=== PATIENT | male | born 2000 | race Caucasian/White ===

== ENCOUNTER 2022-10-19 18:11 | Emergency (ER) | payer OTHER, SELFPAY ==
[2022-10-19 18:19] VITALS: BP 134/81; PULSE 114; RESP 20; TEMP 36.9; O2SAT 96; BMI 34.2
--- NOTE | 2022-10-19 18:22 | DI.RAD.S_ITS ---
PROCEDURE: XR ANKLE LT MIN 3V INDICATIONS: injury TECHNIQUE: 3 views of the ankle were acquired. COMPARISON: [facility], CR, XR FOOT LT MIN 3V, 10/19/2022, 18:23. FINDINGS: Bones: Subtle linear calcification noted along the anterior and dorsal aspect of the talus. No significant soft tissue swelling. Ankle mortise is normally aligned. No suspicious bony lesions. Soft tissues: No tibiotalar joint effusion. Achilles tendon appears normal. Mild soft tissue swelling along the lateral ankle. IMPRESSION: Linear calcification along the dorsal aspect of the anterior talus may represent age indeterminate avulsive injury. No adjacent inflammation. Mild soft tissue swelling of the lateral ankle. Dictated by: Flex Ogden D.O. on 10/19/2022 at 17:50 Approved by: Flex Ogden D.O. on 10/19/2022 at 17:52
--- NOTE | 2022-10-19 18:23 | DI.RAD.S_ITS ---
PROCEDURE: XR FOOT LT MIN 3V INDICATIONS: injury TECHNIQUE: 3views of the foot were acquired. COMPARISON: None. FINDINGS: Bones: Linear calcification along the dorsal aspect of the anterior talus noted on the lateral view. No suspicious bony lesions. Soft tissues: No tibiotalar joint effusion. Achilles tendon appears normal. IMPRESSION: Linear calcification along the dorsal aspect of the anterior talus may represent age-indeterminate avulsive injury. No adjacent inflammation. Otherwise no a acute abnormality of the foot. Dictated by: Flex Ogden D.O. on 10/19/2022 at 17:53 Approved by: Flex Ogden D.O. on 10/19/2022 at 17:54
--- NOTE | 2022-10-19 18:23 | DI.RAD.S_ITS ---
PROCEDURE: XR FINGER RT MIN 2V INDICATIONS: injury TECHNIQUE: AP hand, 2 views of the small finger(s) acquired. COMPARISON: None. FINDINGS: Bones: No fractures or dislocations. No suspicious bony lesions. Soft tissues: No suspicious soft tissue calcifications. IMPRESSION: No evidence acute bony abnormality of the small finger of the right hand Dictated by: Beau Raymundo M.D. on 10/19/2022 at 19:19 Approved by: Beau Raymundo M.D. on 10/19/2022 at 19:20
--- NOTE | 2022-10-19 18:23 | ED.LOWEXIN ---
HPI - Extremity Injury (Lower) <Jessica Jalloh PA-C - Last Filed: 10/19/22 20:14> General Chief Complaint: Extremity Injury, Lower Stated Complaint: Left ankle inj, Right finger inj Time Seen by Provider: 10/19/22 18:22 Source: patient Mode of arrival: Ambulatory History of Present Illness HPI Narrative: This is a 21-year-old male who presents with concern for left ankle and foot pain as well as right pinky pain. 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 The palate was unstable and he broke through it with his right foot going all the way down to the ground below the street about 2 or 3 ft. In the process his left ankle rolled to the outside and ended up out to the side. He states that his right foot and leg have been fine but his left foot and ankle have been painful and swollen. He has been trying not to walk on it but he has walked on it some and has not been using crutches. They did ice it on and off and kept it elevated on the flight back. He states his right pinky got smashed some how in the incident. He has noticed that he has not been able to move it as much as usual with bending it, and it has been bruised and a little bit swollen. He endorses the foot pain as being sharp and worse when he moves his 2nd to 4th toes. It is located at the top of his foot near the ankle in the front and on the sides. He denies numbness or tingling of the affected extremity, also denies previous surgery or injury to this foot or ankle or pinky. He did not have any other injuries and denies other complaints or concerns. Related Data Home Medications Medication Instructions Recorded Confirmed No Known Home Medications 10/19/22 10/19/22 Allergies Allergy/AdvReac Type Severity Reaction Status Date / Time No Known Drug Allergies Allergy Verified 10/19/22 18:22 Review of Systems <Jessica Jalloh PA-C - Last Filed: 10/19/22 20:14> Review of Systems Narrative: See HPI Patient History <Jessica Jalloh PA-C - Last Filed: 10/19/22 20:14> Social History Smoking Status: Current every day smoker Smoking Status: Current every day smoker tobacco type: vaping alcohol intake frequency: holidays/special occasions only Substance Use Type: does not use Exam <Jessica Jalloh PA-C - Last Filed: 10/19/22 20:14> Narrative Exam Narrative: GENERAL: 21 year old patient appears stated age. Well-developed patient, in mild distress. HEAD: Atraumatic. Normocephalic. EYES: Pupils equal round and reactive. Extraocular motions intact. No scleral icterus. No injection or drainage. ENT: Nose without bleeding, purulent drainage. Airway patent. NECK: Trachea midline. CARDIOVASCULAR: Regular rate and rhythm without murmurs, gallops, or rubs. RESPIRATORY: Clear to auscultation. Breath sounds equal bilaterally. No wheezes, rales, or rhonchi. GASTROINTESTINAL: Abdomen soft, non-tender, nondistended. EXTREMITIES: The affected right pinky is moderately swollen with bruising purplish blue present near the base of the pinky and at the PIP. There is slight tenderness with the palpation of the PIP, patient has generally intact range of motion and strength but with slightly reduced flexion 2nd to pain and swelling. The affected left foot and ankle are positive for moderate generalized swelling about the ankle most prominent over the lateral aspect and anterior aspect. Patient is tender with palpation over the anterior ankle/proximal mid foot and medial and lateral foot just distal to the ankle, there is no medial malleolar tenderness or lateral malleolar tenderness. There is tenderness of the 3rd metatarsal. The 3rd and 4th toes have bruising present purplish blue at the base of the toes but intact range of motion. Capillary refill is less than 2 seconds, skin is pink warm dry. Patient has reduced range of motion at the ankle 2nd to pain and swelling. No edema or joint tenderness. BACK: Nontender without deformity or crepitance. No flank tenderness. NEURO: AOx3. SKIN: No rash or erythema of visible areas Initial Vital Signs Initial Vital Signs: Vital Signs Temperature 98.5 F 10/19/22 18:19 Pulse Rate 114 H 10/19/22 18:19 Respiratory Rate 20 10/19/22 18:19 Blood Pressure 134/81 10/19/22 18:19 Pulse Oximetry 96 10/19/22 18:19 Oxygen Delivery Method Room Air 04/08/23 18:19 <Cole Pettit DO - Last Filed: 10/19/22 20:46> Initial Vital Signs Initial Vital Signs: Vital Signs Temperature 98.5 F 10/19/22 18:19 Pulse Rate 114 H 10/19/22 18:19 Respiratory Rate 20 10/19/22 18:19 Blood Pressure 134/81 10/19/22 18:19 Pulse Oximetry 96 10/19/22 18:19 Oxygen Delivery Method Room Air 10/19/22 18:19 Course <Jessica Jalloh PA-C - Last Filed: 10/19/22 20:14> Course Course Narrative: did discuss XR findings with Attending Dr Pettit. Agrees w/plan for splint/non weight bearing, [place]. Imaging disc asked for from radiology. 1919 Orders Ordered: ED Orders 10/19/22 18:22 XR ankle LT min 3V Stat 10/19/22 18:23 XR finger RT min 2V Stat XR foot LT min 3V Stat Vital Signs Vital signs: Vital Signs - 8 hr 10/19/22 18:19 10/19/22 20:15 Temperature 98.5 F Pulse Rate 114 H 93 H Respiratory Rate 20 16 Blood Pressure 134/81 131/60 Pulse Oximetry 96 96 Oxygen Delivery Method Room Air Room Air <DO Donta Beck Last Filed: 10/19/22 20:46> Orders Ordered: ED Orders 10/19/22 18:22 XR ankle LT min 3V Stat 10/19/22 18:23 XR finger RT min 2V Stat XR foot LT min 3V Stat Vital Signs Vital signs: Vital Signs - 8 hr 10/19/22 18:19 10/19/22 20:15 Temperature 98.5 F Pulse Rate 114 H 93 H Respiratory Rate 20 16 Blood Pressure 134/81 131/60 Pulse Oximetry 96 96 Oxygen Delivery Method Room Air Room Air MDM - Extremity Injury (Lower) <Jessica Jalloh PA-C - Last Filed: 10/19/22 20:14> Differential Diagnosis Differential diagnosis: Likely ankle sprain and strain, ankle fracture (foot fracture) and other (foot sprain, finger sprain fracture) Imaging Data Extremity x-ray #1: My Impression: Agree with radiologist's interpretation Radiologist's Impression: [address] [address] XRay Report Signed Patient: Nick Arriaza MR#: [id number] : 2000 Acct:[id number] Age/Sex: 21 / M Date of Service: 10/19/22 Loc: ED Accession Number: [id number] ?? Procedure: XR ankle LT min 3V Ordering Provider: Jessica Jalloh P.A-C PROCEDURE:? XR ANKLE LT MIN 3V ? INDICATIONS:? injury ? TECHNIQUE:? 3 views of the ankle were acquired.? ? COMPARISON:? [facility], , XR FOOT LT MIN 3V, 10/19/2022, 18:23. ? FINDINGS:? ? Bones:? Subtle linear calcification noted along the anterior and dorsal aspect of the talus.? No significant soft tissue swelling.? Ankle mortise is normally aligned.? No suspicious bony lesions.? ? Soft tissues:? No tibiotalar joint effusion.? Achilles tendon appears normal.? Mild soft tissue swelling along the lateral ankle. ? ? IMPRESSION:? ? Linear calcification along the dorsal aspect of the anterior talus may represent age indeterminate avulsive injury.? No adjacent inflammation. ? Mild soft tissue swelling of the lateral ankle. ? Dictated by: Flex Ogden D.O. on 10/19/2022 at 17:50 ? ? Approved by: Flex Ogden D.O. on 10/19/2022 at 17:52?? Extremity x-ray #2: My Impression: Agree with radiologist's interpretation Radiologist's Impression: [facility] [address] [place] [id number] XRay Report Signed Patient: Nick Arriaza MR#: [id number] : 2000 Acct:[id number] Age/Sex: 21 / M Date of Service: 10/19/22 Loc: ED Accession Number: [id number] ?? Procedure: XR foot LT min 3V Ordering Provider: Jessica Jalloh P.A-C PROCEDURE:? XR FOOT LT MIN 3V ? INDICATIONS:? injury ? TECHNIQUE:? 3views of the foot were acquired.? ? COMPARISON:? None. ? FINDINGS:? ? Bones:? Linear calcification along the dorsal aspect of the anterior talus noted on the lateral view.? No suspicious bony lesions.? ? Soft tissues:? No tibiotalar joint effusion.? Achilles tendon appears normal.? ? ? IMPRESSION:? ? Linear calcification along the dorsal aspect of the anterior talus may represent age-indeterminate avulsive injury.? No adjacent inflammation.? Otherwise no a acute abnormality of the foot. ? ? Dictated by: Flex Ogden D.O. on 10/19/2022 at 17:53 ? ? Approved by: Flex Ogden D.O. on 10/19/2022 at 17:54?? Extremity x-ray #3: My Impression: Agree with radiologist interpretation Radiologist's Impression: [address] [address] XRay Report Signed Patient: Nick Arriaza MR#: [id number] : 2000 Acct:[id number] Age/Sex: 21 / M Date of Service: 10/19/22 Loc: ED Accession Number: [id number] ?? Procedure: XR finger RT min 2V Ordering Provider: Jessica Jalloh P.A-C PROCEDURE:? XR FINGER RT MIN 2V ? INDICATIONS:? injury ? TECHNIQUE:? AP hand, 2 views of the small finger(s) acquired.? ? COMPARISON:? None. ? FINDINGS:? ? Bones:? No fractures or dislocations.? No suspicious bony lesions.? ? Soft tissues:? No suspicious soft tissue calcifications.? ? IMPRESSION:? No evidence acute bony abnormality of the small finger of the right hand ? ? Dictated by: Beau Raymundo M.D. on 10/19/2022 at 19:19 ? ? Approved by: Beau Raymundo M.D. on 10/19/2022 at 19:20?? Treatment and disposition Shared decision making:: Shared decision-making was used in determining this patient's plan of care in the emergency department and plan for outpatient follow-up. 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 Also concern for right pinky pain and swelling. X-rays returned positive for age-indeterminate possible avulsion injury of the talus in the affected left foot. Exam is consistent with this injury and suspect that this is related to the injury the patient sustained 2 days ago. No prior injury or surgery to this foot or ankle. Patient is placed in an ortho-glass stirrup with posterior slab, provided with crutches, advised non-weightbearing, advised to [place], provided with copies of imaging on disc. Re-evaluated the patient after splinting with no change in neurovascular status. Advised regarding RICE. Return precautions provided, follow-up plan discussed, all questions answered. Discharge Plan Departure Patient Disposition: Home Clinical Impression: Avulsion fracture of talus, Ankle sprain and strain, Finger sprain Instructions: How to Take Care of Your Splint Activity Restrictions/Additional Instructions: Thank you for letting us be part of your care today in the emergency department. You sustained an injury a few days ago on deployment and we obtained x-rays today for further evaluation. It looks like your pinky is just a sprain/strain there is not evidence of fracture there but we did place this in a splint today. Your ankle definitely is sprained/strained but you also appear to have an avulsion fracture of the talus which is 1 of the bones in your foot that helps to support your weight. It is important that you do not walk or put weight on this injured foot until you have followed up with Orthopedics and made a plan with them. We have provided you with crutches today and placed do in a splint. This will need to stay dry in order to be effective. I recommend elevating her leg as much as possible, certainly no weight-bearing as discussed, and Tylenol and ibuprofen alternating for pain. We are provided you with paper copies and a disc of the imaging studies so that you can share these [place]. There is no evidence of an emergent or life threatening illness at this time, but follow up with your doctor in 1-2 days is recommended nonetheless to continue to rule out serious underlying causes of your symptoms. Please call the office for an appointment. Please return to the Emergency Department for any worsening or persistent symptoms. Please take medications as directed. Prescriptions: No Action No Known Home Medications Referrals: Provider,Reymundo WARE [Primary Care Provider] - Stand Alone Forms: Patient Portal/API <Cole Pettit DO - Last Filed: 10/19/22 20:46> Cosign ED Attending Cosignature Attestation: Dr Pettit Co-Sign Statement: I was available for consultation during this patient's emergency department visit. This chart is signed by myself for administrative purposes only. I did not have direct contact with this patient during this visit. They were seen independently by the APC.
[2022-10-19 20:15] VITALS: BP 131/60; PULSE 93; RESP 16; O2SAT 96
== END 2022-10-19 20:20 | disposition home or self-care (01) ==
PROVIDERS: Emergency Provider Student in an Organized Health Care Education/Training Program
DX: S92.152A Displaced avulsion fracture (chip fracture) of left talus, initial encounter for closed fracture (principal); S93.402A Sprain of unspecified ligament of left ankle, initial encounter; S96.912A Strain of unspecified muscle and tendon at ankle and foot level, left foot, initial encounter; S63.616A Unspecified sprain of right little finger, initial encounter; W18.30XA Fall on same level, unspecified, initial encounter
CPT/HCPCS: 29515; 73140; 73610; 73630; 99283

== ENCOUNTER 2022-11-29 11:15 | Emergency (ER) | payer OTHER, SELFPAY ==
[2022-11-29 11:43] VITALS: BP 135/96; PULSE 104; RESP 16; TEMP 38; O2SAT 97; BMI 33.5
[2022-11-29 11:52] VITALS: TEMP 38
[2022-11-29] MEDS: ACETAMINOPHEN 325 MG TABLET 975 MG PO (11:52)
[2022-11-29] MEDS: IBUPROFEN 400 MG TABLET 800 MG PO (11:52)
[2022-11-29 12:49] LABS: Adenovirus Not Detected (Not Detect); B. parapertussis Not Detected (Not Detecte); Bordetella pertussis Not Detected (Not Detecte); Chlamydophila pneumoniae Not Detected (Not Detect); Coronavirus 229E Not Detected (Not Detect); Coronavirus HKU1 Not Detected (Not Detect); Coronavirus NL 63 Not Detected (Not Detect); Coronavirus OC43 Not Detected (Not Detect); Human Metapneumovirus Not Detected (Not Detect); Human Rhinovirus/Enterovirus Not Detected (Not Detect); Influenza A Not Detected (Not Detect); Influenza B Not Detected (Not Detect); Mycoplasma pneumoniae Not Detected (Not Detect); Parainfluenza Virus 1 Not Detected (Not Detect); Parainfluenza Virus 2 Not Detected (Not Detect); Parainfluenza Virus 3 Not Detected (Not Detect); Parainfluenza Virus 4 Not Detected (Not Detect); Respiratory Syncytial Virus Not Detected (Not Detect); SARS- CoV-2 Not Detected (Not Detecte)
[2022-11-29 16:16] VITALS: BP 133/73; PULSE 73; O2SAT 97
[2022-11-29 16:28] LABS: Strep Grp A by PCR Rapid Negative (Negative)
--- NOTE | 2022-11-29 17:16 | ED_ITS ---
HPI - URI/Sore Throat <Jessica Jalloh PA-C - Last Filed: 11/29/22 17:25> General Chief Complaint: Upper Respiratory Symptoms Stated Complaint: T-2/fever/lumps om neck/D/drainage Time Seen by Provider: 11/29/22 11:24 History of Present Illness HPI Narrative: Is a 21-year-old male who presents with concerns for postnasal drips, sinus drainage, low-grade fevers, and swollen lymph nodes on the right side of his neck. Patient states symptoms have been present for about 3 days, he states that they have not been worsening but they are also not really improved. His fevers have been up to about 101 they are relieved with Tylenol and ibuprofen. He states they have been coming and going. He also endorses some congestion and postnasal drip with slight throat irritation. He stated that he had a couple episodes of loose stools yesterday but none today. Denies any chills, nausea, vomiting, abdominal pain or any other symptoms. He denies any other complaints or concerns. Related Data Home Medications Medication Instructions Recorded Confirmed No Known Home Medications 10/19/22 10/19/22 Allergies Allergy/AdvReac Type Severity Reaction Status Date / Time No Known Drug Allergies Allergy Verified 11/29/22 17:16 Review of Systems <Jessica Jalloh PA-C - Last Filed: 11/29/22 17:25> Review of Systems Narrative: See HPI Patient History <Jessica Jalloh PA-C - Last Filed: 11/29/22 17:25> Social History Smoking Status: Current every day smoker Smoking Status: Current every day smoker tobacco type: vaping alcohol intake frequency: holidays/special occasions only Substance Use Type: does not use Exam <Jessica Jalloh PA-C - Last Filed: 11/29/22 17:25> Narrative Exam Narrative: GENERAL: 21 year old patient appears stated age. Well-developed patient, in mild distress. HEAD: Atraumatic. Normocephalic. EYES: Pupils equal round and reactive. Extraocular motions intact. No scleral icterus. No injection or drainage. ENT: Nose without bleeding, purulent drainage. Throat with mild erythema, without tonsillar hypertrophy or exudate. Airway patent. NECK: Trachea midline. There is unilateral right-sided posterior cervical chain lymphadenopathy with multiple lymph nodes 2 cm, they are slightly tender, there is no erythema or fluctuance noted. Non tender CARDIOVASCULAR: Regular rate and rhythm without murmurs, gallops, or rubs. RESPIRATORY: Clear to auscultation. Breath sounds equal bilaterally. No wheezes, rales, or rhonchi. GASTROINTESTINAL: Abdomen soft, non-tender, nondistended. EXTREMITIES: No edema or joint tenderness. BACK: Nontender without deformity or crepitance. No flank tenderness. NEURO: AOx3. SKIN: No rash or erythema of visible areas Initial Vital Signs Initial Vital Signs: Vital Signs Temperature 100.4 F H 11/29/22 11:43 Pulse Rate 104 H 11/29/22 11:43 Respiratory Rate 16 11/29/22 11:43 Blood Pressure 135/96 H 11/29/22 11:43 Pulse Oximetry 97 11/29/22 11:43 Oxygen Delivery Method Room Air 11/29/22 11:43 <Brie Patterson DO - Last Filed: 11/29/22 19:26> Initial Vital Signs Initial Vital Signs: Vital Signs Temperature 100.4 F H 11/29/22 11:43 Pulse Rate 104 H 11/29/22 11:43 Respiratory Rate 16 11/29/22 11:43 Blood Pressure 135/96 H 11/29/22 11:43 Pulse Oximetry 97 11/29/22 11:43 Oxygen Delivery Method Room Air 11/29/22 11:43 Course <Jessica Jalloh PA-C - Last Filed: 11/29/22 17:25> Orders Ordered: ED Orders 11/29/22 11:48 Respiratory Panel (Film Array) Stat 11/29/22 16:04 Strep Grp A by PCR Rapid Stat Throat Culture Stat Discontinued Medications Acetaminophen (Acetaminophen 325 Mg Tablet) 975 mg PO NOW ONE Stop: 11/29/22 11:49 Last Admin: 11/29/22 11:52 Dose: 975 mg Documented By: EFREN Ibuprofen (Ibuprofen 400 Mg Tablet) 800 mg PO NOW ONE Stop: 11/29/22 11:49 Last Admin: 11/29/22 11:52 Dose: 800 mg Documented By: CTS Vital Signs Vital signs: Vital Signs - 8 hr 11/29/22 11:43 11/29/22 11:52 11/29/22 11:52 Temperature 100.4 F H 100.4 F H 100.4 F H Pulse Rate 104 H Respiratory Rate 16 Blood Pressure 135/96 H Pulse Oximetry 97 Oxygen Delivery Method Room Air 11/29/22 16:16 Temperature Pulse Rate 73 Respiratory Rate Blood Pressure 133/73 Pulse Oximetry 97 Oxygen Delivery Method Room Air <Brie Patterson DO - Last Filed: 11/29/22 19:26> Orders Ordered: ED Orders 11/29/22 11:48 Respiratory Panel (Film Array) Stat 11/29/22 16:04 Strep Grp A by PCR Rapid Stat Throat Culture Stat Discontinued Medications Acetaminophen (Acetaminophen 325 Mg Tablet) 975 mg PO NOW ONE Stop: 11/29/22 11:49 Last Admin: 11/29/22 11:52 Dose: 975 mg Documented By: CTS Ibuprofen (Ibuprofen 400 Mg Tablet) 800 mg PO NOW ONE Stop: 11/29/22 11:49 Last Admin: 11/29/22 11:52 Dose: 800 mg Documented By: CTS Vital Signs Vital signs: Vital Signs - 8 hr 11/29/22 11:43 11/29/22 11:52 11/29/22 11:52 Temperature 100.4 F H 100.4 F H 100.4 F H Pulse Rate 104 H Respiratory Rate 16 Blood Pressure 135/96 H Pulse Oximetry 97 Oxygen Delivery Method Room Air 11/29/22 16:16 Temperature Pulse Rate 73 Respiratory Rate Blood Pressure 133/73 Pulse Oximetry 97 Oxygen Delivery Method Room Air MDM - URI/Sore Throat <Jessica Jalloh PA-C - Last Filed: 11/29/22 17:25> Differential Diagnosis Differential diagnosis: Likely upper respiratory infection, viral infection and other (Mononucleosis ) Medical Records Attestation: I reviewed the patient's medical records. Lab Data Attestation: I reviewed the patient's lab results. Labs: Lab Results 11/29/22 11/29/22 Range/Units 11:48 16:04 Chlamy pneumoniae PCR Not detected (Not Detect) Adenovirus (PCR) Not detected (Not Detect) B. pertussis DNA (PCR) Not detected (Not Detecte) B.parapertussis DNA PCR Not detected (Not Detecte) Coronavirus OC43 (PCR) Not detected (Not Detect) Coronavirus HKU1 (PCR) Not detected (Not Detect) Coronavirus 229E (PCR) Not detected (Not Detect) SARS-CoV-2 (PCR) Not detected (Not Detecte) Coronavirus NL63 (PCR) Not detected (Not Detect) Human Metapneumovir PCR Not detected (Not Detect) Influenza Type A (PCR) Not detected (Not Detect) Influenza Type B (PCR) Not detected (Not Detect) M. pneumoniae (PCR) Not detected (Not Detect) Parainfluenza 1 (PCR) Not detected (Not Detect) Parainfluenza 2 (PCR) Not detected (Not Detect) Parainfluenza 3 (PCR) Not detected (Not Detect) Parainfluenza 4 (PCR) Not detected (Not Detect) RSV (PCR) Not detected (Not Detect) Entero/Rhino (PCR) Not detected (Not Detect) Group A Strep (PCR) Negative (Negative) [facility] Narrative Medical decision making narrative: This is a very well-appearing 21-year-old male who presents with concern for low-grade fevers for the last 3 days with right-sided lymph node swelling in his neck and a few episodes of loose stools yesterday and a slight sore throat with postnasal drip. Patient had negative viral panel for COVID flu and RSV today, also had negative rapid strep. His throat exam is not consistent with strep pharyngitis or bacterial pharyngitis. He does have notable lymphadenopathy posterior cervical chain that is unilateral. Patient has had symptoms for 3 days they have not worsened, his fevers are relieved with Tylenol and ibuprofen, I am less suspicious for a bacterial process in this patient and do suspect a viral illness, possibly mononucleosis. Patient was initially slightly febrile a nd slightly tachycardic on presentation however these symptoms did resolve completely during his stay, he is not toxic or septic appearing and I have low suspicion for this. Discussed with the patient potentially obtaining a blood lab to check for this over patient does not feel strongly he needs a specific answer for his symptoms just wanted to get checked up. Blood Labs and imaging are not obtained today. Do provide the patient with strict return precautions, follow-up plan discussed, all questions answered. <Brie Patterson DO - Last Filed: 11/29/22 19:26> Lab Data Labs: Lab Results 11/29/22 11/29/22 Range/Units 11:48 16:04 Chlamy pneumoniae PCR Not detected (Not Detect) Adenovirus (PCR) Not detected (Not Detect) B. pertussis DNA (PCR) Not detected (Not Detecte) B.parapertussis DNA PCR Not detected (Not Detecte) Coronavirus OC43 (PCR) Not detected (Not Detect) Coronavirus HKU1 (PCR) Not detected (Not Detect) Coronavirus 229E (PCR) Not detected (Not Detect) SARS-CoV-2 (PCR) Not detected (Not Detecte) Coronavirus NL63 (PCR) Not detected (Not Detect) Human Metapneumovir PCR Not detected (Not Detect) Influenza Type A (PCR) Not detected (Not Detect) Influenza Type B (PCR) Not detected (Not Detect) M. pneumoniae (PCR) Not detected (Not Detect) Parainfluenza 1 (PCR) Not detected (Not Detect) Parainfluenza 2 (PCR) Not detected (Not Detect) Parainfluenza 3 (PCR) Not detected (Not Detect) Parainfluenza 4 (PCR) Not detected (Not Detect) RSV (PCR) Not detected (Not Detect) Entero/Rhino (PCR) Not detected (Not Detect) Group A Strep (PCR) Negative (Negative) Discharge Plan Departure Patient Disposition: Home Clinical Impression: Lymphadenopathy Activity Restrictions/Additional Instructions: *You have been diagnosed with lymphadenopathy, likely viral illness *What to do: *Please continue to take your regular medications as directed. [ ] New medication prescriptions sent to your pharmacy: [ ] [ ] New medication written as a paper prescription [ *] No new medications given *Please follow up with your primary care provider in 2-3 days, call for an appointment. Let them know you were seen in the Emergency Department and that we ask that you be seen in follow up. We will electronically transmit a record of today's note if your PCP is in our system. We did tested today for strep and common viruses including COVID flu and RSV these all returned negative. We did not do additional testing today and after discussion year were agreeable with this, I think it is quite possible that your symptoms are due to a viral illness, mononucleosis certainly can cause these symptoms, and other viruses as well. However it is really important that you monitor for new or worsening symptoms over the next few days, if you do develop high fevers that are unrelieved with medication, you have increased swelling or pain in your affected lymph nodes or other symptoms of concern please do not hesitate to seek re- evaluation. Otherwise I strongly encourage you to follow-up closely with your primary care provider for further evaluation. *If you do not have a primary care provider please contact the [facility] Resource line at [phone]. They will ask some questions about your medical history and help get you set up with a doctor in the community. *Return to Emergency Department if you should have any new, worsening or concerning symptoms, such as [fever greater than 101 F, shaking chills, worsening pain, persistent vomiting or other bothersome symptoms] Prescriptions: No Action No Known Home Medications Referrals: Provider,Reymundo WARE [Primary Care Provider] - Stand Alone Forms: Patient Portal/API <Brie Patterson DO - Last Filed: 11/29/22 19:26> Cosign ED Attending Jocy Attestation: I was immediately available in the department for consultation. Documentation has been reviewed.
== END 2022-11-29 17:30 | disposition home or self-care (01) ==
PROVIDERS: Emergency Medicine; Emergency Provider Student in an Organized Health Care Education/Training Program
DX: R59.1 Generalized enlarged lymph nodes (principal)
CPT/HCPCS: 87070; 87633; 87651; 99283